=== PATIENT | male | born 1985 | race Two or more races ===

== ENCOUNTER 2020-01-12 15:40 | Emergency (ER) | payer OTHER, SELFPAY ==
[2020-01-12 16:06] VITALS: BP 143/87; PULSE 83; RESP 20; TEMP 36.4; O2SAT 97; BMI 31.8
--- NOTE | 2020-01-12 16:06 | ED_ITS ---
[facility] [place] Clinical Impression: Exposure to COVID-19 virus Disposition: Home, Self-Care Condition on Discharge: Good Instructions: Preventing the Spread of Coronavirus Discharge Instructions Additional Instructions: Test results will be available later tonight. Referrals: PCP,No [Primary Care Provider] - Time of Disposition: 16:11 Medical Decision Making - [place] Inquiry Pt receiving controlled substance: No [facility] [place] H[place] - General Stated complaint: Wants covid testing Time Seen by Provider: 01/12/20 16:06 - History of Present Illness Provider Complaint: Patient's and 4 children have tested positive for COVID19. He tested negative at the same time (5 days ago). Employer is requesting another COVID19 test before he returns to work. He denies fever, ear pain, shortness of breath, sore throat, cough, N/V/D, loss of taste or smell. Onset (ago): day(s) Relieving factors: none Exacerbating factors: none Associated symptoms: denies other symptoms Treatments prior to arrival: none [facility] History - Hepatitis A Screen Attestation statement:: This patient has been screened for Hepatitis A risk factors. I have reviewed the patient's past medical history: Yes ROS Obtained: Yes All systems reviewed & no additional complaints - Constitutional Constitutional: Denies body ache, Denies chills, Denies fatigue, Denies fever(s), Denies headache(s), Denies lethargy, Denies malaise - Eyes Eyes: Denies eye discharge - ENT Ears, Nose, Mouth, and Throat: Denies otalgia, Denies sinus pain, Denies sinus pressure, Denies sore throat - Cardiovascular Cardiovascular: Denies chest pain - Respiratory Respiratory: No cough, No dyspnea - Gastrointestinal Gastrointestingal: Denies: loose stools, vomiting Physical Exam - General General appearance: alert, in no apparent distress - Head Head exam: atraumatic, normocephalic, normal inspection - Eye Eye exam: Present: normal appearance, PERRL, EOMI - ENT ENT exam: Present: normal exam, normal oropharynx, mucous membranes moist, TM's normal bilaterally, normal external ear exam - Neck Neck exam: Present: normal inspection, full ROM, trachea midline. Absent: meningismus, lymphadenopathy - Chest Chest inspection: Present: normal inspection, symmetric chest wall rise. Absent: tenderness - Respiratory Respiratory exam: Present: normal lung sounds bilaterally. Absent: respiratory distress - Cardiovascular Cardiovascular exam: Present: regular rate, normal rhythm. Absent: JVD - Abdominal Exam Abdominal exam: Present: soft, normal bowel sounds. Absent: distention, tenderness, guarding - Extremities Exam Extremities exam: Present: normal inspection, full ROM, normal capillary refill. Absent: calf tenderness - Back Exam Back exam: Present: normal inspection. Absent: tenderness - Neurological Exam Neurological exam: Present: alert, oriented X3 - Psychiatric Psychiatric exam: Present: normal affect, normal mood - Skin Skin exam: Present: warm, dry, intact, normal color - Lymphatic Lymphatic Findings: no adenopathy
[2020-01-12 16:29] VITALS: BP 143/87; PULSE 83; RESP 20; TEMP 36.4; O2SAT 97
== END 2020-01-12 16:35 | disposition home or self-care (01) ==
PROVIDERS: Emergency Provider Physician Assistant
DX: Z20.828 Contact with and (suspected) exposure to other viral communicable diseases (principal)
CPT/HCPCS: 99201; U0003

== ENCOUNTER 2020-01-19 13:02 | Outpatient (CLI) | payer OTHER, SELFPAY | END 2020-01-19 13:10 | PROVIDERS: Visit Provider Nurse Practitioner | DX: Z03.818 Encounter for observation for suspected exposure to other biological agents ruled out (principal) | CPT/HCPCS: U0003 ==